=== PATIENT | female | born 1960 | race Two or more races ===

== ENCOUNTER 2023-08-22 07:26 | Day surgery (SDC) | payer OTHER ==
[2023-08-15 12:17] LABS: URINE APPEARANCE Clear; URINE BILIRRUBIN Negative (NEGATIVE); URINE BLOOD Negative; URINE COLOR Yellow; URINE GLUCOSE Negative (NEGATIVE); URINE LEUKOCYTE Negative; URINE NITRATE Negative; URINE PROTEIN Negative (NEGATIVE); URINE UROBILINOGEN 0.2 E.U./dl
[2023-08-15 12:18] LABS: URINE RBC 5.3 uL (0.0-20.8); URINE WBC 2.2 uL (0.0-23.2)
[2023-08-15 12:41] LABS: URINE BACTERIA 1.2 uL (0.0-1933); URINE EPITHELIAL CELLS 1.3 uL (0.0-38.8)
[2023-08-15 12:45] LABS: HEMATOCRIT 39.7 % (36.0-45.00); HEMOGLOBIN 13.7 g/dL (12.0-15.00); MEAN CORPUSCULAR HEMOGLOBIN 29.7 pg (27.00-32.0); MEAN CORPUSCULAR HGB CONC 34.6 g/dl (32.0-36.0); PLATELET COUNT 319 K/uL (150-450); RED BLOOD COUNT 4.62 M/uL (4.00-6.00)
[2023-08-15 13:21] LABS: INR 0.99; PARTIAL THROMBOPLASTIN TIME 27.9 SECONDS (22.0-34.0); PROTHROMBIN TIME 10.4 SECONDS (9.0-11.5)
[2023-08-15 13:30] LABS: ALBUMIN 4.4 gm/dL (3.4-5.0); BILIRUBIN TOTAL 0.51 mg/dL (0.3-1.2); CALCIUM 10.2 mg/dL (8.5-10.1); CREATININE SERUM 0.72 mg/dL (0.55-1.02); GFR 81.81; GLOBULINA 3.3 G/DL (2.4-3.5); POTASSIUM 5.1 mEq/L (3.5-5.1); TOTAL PROTEIN 7.7 gm/dL (6.4-8.2)
[~2023-08-22] VITALS: Ht 157.5 cm; Wt 66.7 kg
[~2023-08-22 07:26] MED LIST: ALENDRONATE SOD70 MG PO; ATORVASTATIN CA40 MG PO; CALCIUM CIT-VI1 EAC1 PO; CANDESARTAN CILE8 MG PO; FENOFIBRATE134 MG PO; LEVO-T50 MCG PO; PERCOCET 5-3251 EACH PO; SIMVAST PO; SYNTHROID50 MCG PO
[2023-08-22] MEDS ORDERED: DIBUCAINE 30 GM TUBE ONE (09:11)
[2023-08-22] MEDS ORDERED: POVIDONE-IODINE 118 ML BOTT TOP ONE (09:11)
[2023-08-22] MEDS ORDERED: BUPIVACAINE HCL/Mpf 0.5% 10ML VIAL ONE (09:11)
[2023-08-22] MEDS ORDERED: HEMOSTATIC MATRIX 1 KIT KIT TOP ONE (09:12)
[2023-08-22] MEDS ORDERED: LIDOCAINE HCL 1%/EPINEPHRINE 20ML VIAL IJ ONE (09:12)
[2023-08-22] MEDS ORDERED: HEMOSTATIC MATRIX 1 KIT KIT TOP SCH (09:45)
[2023-08-22] MEDS ORDERED: TAMSULOSIN HCL 0.4 MG CAP PO ONE ×2 (09:45→13:48)
[2023-08-22] MEDS ORDERED: DIBUCAINE 30 GM TUBE RECTAL SCH (09:45)
[2023-08-22] MEDS ORDERED: LIDOCAINE HCL 1%/EPINEPHRINE 20ML VIAL IJ SCH (09:45)
[2023-08-22] MEDS ORDERED: METRONIDAZOLE/SODIUM CHLORIDE 500 MG/100 ML PIGGYBACK IV SCH (09:45)
[2023-08-22] MEDS ORDERED: POVIDONE-IODINE 118 ML BOTT TOP SCH (09:45)
[2023-08-22] MEDS ORDERED: CEFTRIAXONE SODIUM 2,000 MG VIAL IV SCH (09:45)
[2023-08-22] MEDS ORDERED: BUPIVACAINE HCL 30 ML VIAL IJ SCH (09:45)
[2023-08-22] MEDS ORDERED: OXYC1TAB9 PO (10:10)
== END 2023-08-22 15:35 | disposition home or self-care (01) ==
LOC: CIR.AMB 07:26
PROVIDERS: ATTEND Surgery
DX: D12.9 Benign neoplasm of anus and anal canal (principal); K60.3 Anal fistula; K62.89 Other specified diseases of anus and rectum; K64.2 Third degree hemorrhoids; K62.5 Hemorrhage of anus and rectum; K59.4 Anal spasm; K64.4 Residual hemorrhoidal skin tags; I10 Essential (primary) hypertension; E03.9 Hypothyroidism, unspecified; K59.00 Constipation, unspecified